=== PATIENT | male | born 1945 ===

== ENCOUNTER 2021-08-20 15:01 | Outpatient (CLI) | payer MEDICARE | END 2021-08-20 15:02 | disposition home or self-care (01) | LOC: BICRAD 15:01 | PROVIDERS: ATTEND Family Medicine | DX: T14.8XXA Other injury of unspecified body region, initial encounter (principal); R68.84 Jaw pain; W19.XXXA Unspecified fall, initial encounter | CPT/HCPCS: 70150 ==